=== PATIENT | male | born 1980 | race Asian ===

== ENCOUNTER → 2020-07-04 | Outpatient (CLI) | payer BC ==
[2020-07-04 06:58] LABS: CHLORIDE 112 mEq/L (98-107)
[2020-07-04 07:04] LABS: LDL CHOLESTEROL 112 mg/dL (5-100)
[2020-07-04 07:06] LABS: HDL CHOLESTEROL 65 mg/dL (40-59); TOTAL IRON BINDING CAPACITY 443 ug/dL (250-450)
[2020-07-04 07:08] LABS: T4 FREE 1.18 ng/dL (0.76-1.46)
[2020-07-04 07:39] LABS: FERRITIN 144 ng/mL (22-322)
[2020-07-04 07:50] LABS: HEPATITIS B SURFACE ANTIGEN NEGATIVE
[2020-07-04 07:57] LABS: VITAMIN B12 SERUM 746 pg/mL (211-911)
[2020-07-04 07:59] LABS: BASOPHILS % 0.7 % (0.0-2.0); HEMOGLOBIN. 15.2 g/dL (14.0-18.0); LYMPHOCYTES % 21.6 % (20.0-50.0); MEAN CORPUSCULAR HEMOGLOBIN 31.5 pg (28.0-32.0); MEAN CORPUSCULAR VOLUME 91.1 fL (80.0-94.0); MEAN PLATELET VOLUME 8.8 fl (7.4-10.4); MONOCYTES % 6.5 % (2.0-8.0); NEUTROPHILS % 70.2 % (40.0-76.0); PLATELET 248 x1000/uL (130-400); RED BLOOD CELL COUNT 4.82 mill/uL (4.7-6.1); RED CELL DISTRIBUTION WIDTH 14.1 % (11.6-14.6)
[2020-07-04 08:19] LABS: HEPATITIS A AB IGM NEGATIVE (NEGATIVE)
[2020-07-05 06:07] LABS: HIV SCREEN 4G Non Reactive (Non Reactive); VITAMIN D 25-OH 33.5 ng/mL (30.0-100.0)
[2020-07-07 04:10] LABS: NEISSERIA GONORRHOEAE NAA Negative (Negative)
== END | disposition home or self-care (01) ==
LOC: LAB 06:14
PROVIDERS: ATTEND Family Medicine Adult Medicine
DX: Z00.00 Encounter for general adult medical examination without abnormal findings (principal)
CPT/HCPCS: 36415; 80053; 80061; 82306; 82607; 82728; 82746; 83036; 83540; 83550; 84439; 84443; 84481; 85025; 86592; 86695; 86696; 86705; 86709; 86803; 87340; 87389; 87491; 87591